=== PATIENT | male | born 1965 | race Caucasian/White ===

== ENCOUNTER 2022-10-17 13:48 | Emergency (ER) | payer BC ==
[~2022-10-17] VITALS: Ht 172.7 cm; Wt 82.0 kg
[2022-10-17 15:14] LABS: BASOPHILS % 0.5 % (0.0-2.0); EOSINOPHILS % 3.3 % (0.0-5.0); HEMATOCRIT. 46.1 % (42.0-52.0); HEMOGLOBIN. 15.8 g/dL (14.0-18.0); LYMPHOCYTES % 16.4 % (20.0-50.0); MEAN CORPUSCULAR HEMOGLOBIN 31.4 pg (28.0-32.0); MEAN CORPUSCULAR VOLUME 91.6 fL (80.0-94.0); MEAN PLATELET VOLUME 8.9 fl (7.4-10.4); MONOCYTES % 3.9 % (2.0-8.0); NEUTROPHILS % 75.9 % (40.0-76.0); PLATELET 213 x1000/uL (130-400); RED BLOOD CELL COUNT 5.04 mill/uL (4.7-6.1); RED CELL DISTRIBUTION WIDTH 13.5 % (11.6-14.6)
[2022-10-17 15:21] LABS: CHLORIDE 108 mEq/L (98-107)
[2022-10-17 19:25] VITALS: BP 128/75
== END 2022-10-17 19:50 | disposition home or self-care (01) ==
LOC: ER 13:48
DX: R42 Dizziness and giddiness (principal)
CPT/HCPCS: 36415; 80048; 82962; 84484; 85025; 93005; 99284; Z7610